=== PATIENT | female | born 1980 | race Two or more races ===

== ENCOUNTER 2020-09-11 17:58 | Emergency (ER) | payer OTHER ==
[~2020-09-11] VITALS: Ht 172.7 cm; Wt 108.9 kg
[2020-09-11] MEDS ORDERED: ACETAMINOPHEN 325 MG TAB PO ONE (20:30)
[2020-09-11 21:22] LABS: Urine Bacteria FEW /hpf (None Seen); Urine Blood 3+ /uL (Negative); Urine WBC 10 /hpf (0 - 5)
[2020-09-11 21:46] LABS: Alcohol, Urine < 3.0 mg/dL (0-10); Barbiturate Scree,Urine NEGATIVE (NEGATIVE); Benzodiazephine Screen, Urine NEGATIVE (NEGATIVE); Cannabinoid Screen, Urine NEGATIVE (NEGATIVE); Cocaine Screen, Urine NEGATIVE (NEGATIVE); Opiate Scree,Urine NEGATIVE (NEGATIVE); Phencyclidine Screen, Urine NEGATIVE (NEGATIVE)
[2020-09-11 22:16] LABS: Amphetamine Screen, Urine NEGATIVE (NEGATIVE)
[2020-09-11 23:08] LABS: Basophils # (auto) 0 10 ^3/uL (0-0.2); Eosinophils # (auto) 0 10 ^3/uL (0-0.8); Hemoglobin 11.4 g/dL (12.2-16.2); Monocytes # (auto) 0.3 10 ^3/uL (0-1.3); Red Cell Distribution Width 14.8 % (11.8-14.3); White Blood Cell 4.2 10^3/uL (4.4-10.8)
[2020-09-11 23:10] LABS: Basophils % (auto) 0.5 % (0.0-2.0); Lymphocytes # (auto) 0.9 10 ^3/uL (0.4-5.4); Lymphocytes % (auto) 21.9 % (10.0-50.0); Mean Corpuscular Hgb Conc. 33.4 g/dL (32.0-36.0); Mean Corpuscular Volume 74.9 fL (80.0-100.0); Monocytes % (auto) 6.5 % (0.0-12.0); Neutrophils % (auto) 71.1 % (37.0-80.0); Nucleated Red Blood Cells % 0.1 %; Platelet Count (auto) 76 10^3/uL (140-450); Red Blood Cells 4.55 10^6/uL (4.0-5.20)
[2020-09-11 23:31] LABS: BUN/Creatinine Ratio 7.5; Calcium 9.1 mg/dL (8.5-10.1); Potassium 3.3 mmol/L (3.5-5.1)
[2020-09-11 23:33] LABS: Bilirubin, Total 0.5 mg/dL (0.2-1.0)
[2020-09-12] MEDS ORDERED: POTASSIUM CHL 20 Meq TABLET PO ONE (00:45)
[2020-09-12] MEDS ORDERED: SODIUM CHLORIDE 0.9% 1,000 ML IV ONE (00:45)
[2020-09-12] MEDS: ACETAMINOPHEN 325 MG TAB PO ONE ×2 (01:58→02:13)
[2020-09-12 02:50] VITALS: BP 105/68
== END 2020-09-12 03:00 | disposition home or self-care (01) ==
LOC: ER 18:03
DX: N39.0 Urinary tract infection, site not specified (principal); K52.9 Noninfective gastroenteritis and colitis, unspecified; E86.0 Dehydration; R79.89 Other specified abnormal findings of blood chemistry; Z20.828 Contact with and (suspected) exposure to other viral communicable diseases
CPT/HCPCS: 36415; 71045; 74176; 80053; 80307; 81001; 82150; 83690; 85025; 87426; 99285; C9803; J7030; U0003

== ENCOUNTER 2021-07-15 20:54 | Emergency (ER) | payer OTHER ==
[~2021-07-15] VITALS: Ht 172.7 cm; Wt 106.6 kg
[2021-07-15 21:39] LABS: Urine Bacteria NONE SEEN /hpf (None Seen); Urine Blood 3+ /uL (Negative); Urine WBC 175 /hpf (0 - 5)
[2021-07-15 22:39] LABS: Basophils # (auto) 0 10 ^3/uL (0-0.2); Eosinophils # (auto) 0.1 10 ^3/uL (0-0.8); Hemoglobin 10.7 g/dL (12.2-16.2); Mean Corpuscular Hemoglobin 24.7 pg (28.0-32.0); Neutrophils # (auto) 4.8 10 ^3/uL (1.6-8.6); Nucleated Red Blood Cells % 0.1 %
[2021-07-15 22:40] LABS: Basophils % (auto) 0.3 % (0.0-2.0); Eosinophils % (auto) 0.9 % (0.0-7.0); Hematocrit 33.2 % (36.0-46.0); Lymphocytes # (auto) 2.2 10 ^3/uL (0.4-5.4); Lymphocytes % (auto) 29.3 % (10.0-50.0); Mean Corpuscular Hgb Conc. 32.3 g/dL (32.0-36.0); Mean Corpuscular Volume 76.4 fL (80.0-100.0); Monocytes # (auto) 0.3 10 ^3/uL (0-1.3); Monocytes % (auto) 4.6 % (0.0-12.0); Neutrophils % (auto) 64.9 % (37.0-80.0); Red Blood Cells 4.34 10^6/uL (4.0-5.20); Red Cell Distribution Width 15.1 % (11.8-14.3); White Blood Cell 7.5 10^3/uL (4.4-10.8)
[2021-07-15 22:50] LABS: Albumin 3.4 g/dL (3.4-5.0); Calcium 8.8 mg/dL (8.5-10.1); Potassium 3.9 mmol/L (3.5-5.1)
[2021-07-15 22:54] LABS: BUN/Creatinine Ratio 11.4; Bilirubin, Total 0.2 mg/dL (0.2-1.0); Total Protein 7.2 g/dL (6.4-8.2)
[2021-07-16] MEDS ORDERED: PANTOPRAZOLE 40 MG/10 ML VIAL INJ IV ONE (00:52)
[2021-07-16 01:06] VITALS: BP 117/65
== END 2021-07-16 01:09 | disposition home or self-care (01) ==
LOC: ER 20:54
DX: N93.9 Abnormal uterine and vaginal bleeding, unspecified (principal); N39.0 Urinary tract infection, site not specified; Z90.89 Acquired absence of other organs; Z98.890 Other specified postprocedural states
CPT/HCPCS: 36415; 76830; 76856; 80053; 81001; 84702; 85025; 99284; C9113

== ENCOUNTER → 2021-10-06 | Outpatient (CLI) | payer OTHER | END | disposition home or self-care (01) | LOC: LAB 14:37 | PROVIDERS: ATTEND Obstetrics & Gynecology | DX: N93.9 Abnormal uterine and vaginal bleeding, unspecified (principal) ==

== ENCOUNTER 2022-04-03 13:02 | Emergency (ER) | payer OTHER ==
[~2022-04-03] VITALS: Ht 172.7 cm; Wt 109.8 kg
[2022-04-03 14:42] LABS: Eosinophils # (auto) 0.1 10 ^3/uL (0-0.8); Mean Corpuscular Hemoglobin 22.6 pg (28.0-32.0); Monocytes # (auto) 0.3 10 ^3/uL (0-1.3)
[2022-04-03 14:43] LABS: Basophils # (auto) 0 10 ^3/uL (0-0.2); Basophils % (auto) 0.8 % (0.0-2.0); Eosinophils % (auto) 1.1 % (0.0-7.0); Hematocrit 33.9 % (36.0-46.0); Hemoglobin 10.7 g/dL (12.2-16.2); Lymphocytes # (auto) 1.4 10 ^3/uL (0.4-5.4); Lymphocytes % (auto) 26.4 % (10.0-50.0); Mean Corpuscular Hgb Conc. 31.6 g/dL (32.0-36.0); Mean Corpuscular Volume 71.4 fL (80.0-100.0); Monocytes % (auto) 5.2 % (0.0-12.0); Neutrophils # (auto) 3.6 10 ^3/uL (1.6-8.6); Neutrophils % (auto) 66.5 % (37.0-80.0); Nucleated Red Blood Cells % 0.1 %; Red Blood Cells 4.75 10^6/uL (4.0-5.20); Red Cell Distribution Width 17.2 % (11.8-14.3); White Blood Cell 5.4 10^3/uL (4.4-10.8)
[2022-04-03 14:58] LABS: Albumin 3.5 g/dL (3.4-5.0); Amylase 42 U/L (25-115); Calcium 9.1 mg/dL (8.5-10.1); Lipase 111 U/L (73-393); Potassium 3.9 mmol/L (3.5-5.1)
[2022-04-03 15:02] LABS: BUN/Creatinine Ratio 11.8; Bilirubin, Total 0.3 mg/dL (0.2-1.0); Total Protein 7.6 g/dL (6.4-8.2)
[2022-04-03 17:22] LABS: Urine Bacteria FEW /hpf (None Seen); Urine Mucus FEW (None Seen)
[2022-04-03] MEDS ORDERED: NITR-87 PO ×2 (18:07→20:05)
[2022-04-03 19:59] VITALS: BP 129/74
== END 2022-04-03 20:02 | disposition home or self-care (01) ==
LOC: ER 13:02
DX: N39.0 Urinary tract infection, site not specified (principal); Z90.89 Acquired absence of other organs
CPT/HCPCS: 36415; 74176; 80053; 81001; 82150; 83690; 85025

== ENCOUNTER 2025-07-03 21:35 | Emergency (ER) | payer MEDICAID ==
[~2025-07-03] VITALS: Ht 172.7 cm; Wt 101.7 kg
[~2025-07-03 21:35] MED LIST: NITR-87 PO
--- NOTE | 2025-07-03 23:28 | DVH ---
INDICATION: vag bleed TECHNIQUE: Multiple real-time grayscale transabdominal sonographic images along with color and duplex Doppler of the uterus and ovaries were obtained. COMPARISON: CT ABD PELVIS WO CONTRAST on DOS: 04/03/22, TRANSVAGINAL US NON OB on DOS: 07/15/21, CT ABD PELVIS WO CONTRAST on DOS: 09/11/20 FINDINGS: The uterus measures 10.6 x 6.7 x 6.5 cm. The endometrial stripe measures 1.6 cm. 2.1 x 1.8 x 1.4 cm isoechoic structure within the myometrium, possibly representing a fibroid. 2.1 x 1.9 x 1.5 cm focus within the lower uterine segment /cervix with internal debris. No evidence of pelvic cul-de-sac free fluid. Right ovary measures 4.5 x 3.6 x 3.0 cm with normal Doppler color flow. 4.0 x 2.9 x 2.4 cm cyst. Left ovary not visualized. IMPRESSION: 1. Limited study secondary to patient body habitus. 2. Ill-defined isoechoic structure within the uterine myometrium possibly representing a uterine fibr oid. 3. Cystic structure within the lower uterine segment /cervix with internal debris. 4. Right ovarian cyst. 5. Left ovary not visualized.
[2025-07-03 23:32] LABS: Chloride 104 mmol/L (98-107); Potassium 4.1 mmol/L (3.5-5.1); Sodium 139 mmol/L (136-145)
[2025-07-03 23:33] LABS: Anion Gap 8 (5-15); Calcium 9.2 mg/dL (8.7-10.4); Carbon Dioxide 27 mmol/L (20-31); Hematocrit 29.4 % (36.0-46.0); Hemoglobin 9.4 g/dL (12.2-16.2); Mean Corpuscular Hemoglobin 23.3 pg (28.0-32.0); Mean Corpuscular Volume 72.7 fL (80.0-100.0); Nucleated Red Blood Cells % 0.1 %
[2025-07-03 23:38] LABS: BUN/Creatinine Ratio 9.7 (10.0-20.0); Blood Urea Nitrogen 9 mg/dL (9-23); Glucose 94 mg/dL (74-106)
[2025-07-03 23:50] LABS: INR 0.99 (0.9-1.15); Partial Thromboplastin Time 25.9 SEC (24.5-34.5); Prothrombin Time 10.5 sec (9.3-11.8)
[2025-07-04 03:39] LABS: Urine Protein, UAD 1+ (Negative)
[2025-07-04] MEDS ORDERED: CEPH500C PO (04:05)
[2025-07-04] MEDS ORDERED: MEDR5TAB28 PO (04:05)
--- NOTE | 2025-07-04 04:05 | ED.PDOC ---
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 She denies any fever, nausea, vomiting, diarrhea or urinary symptoms. She denies any syncope, shortness of breath or chest pain. Chief Complaint: Vaginal Bleed Time Seen by MD: 22:21 Reviewed Notes: Nurses Notes Allergies: Coded Allergies: NO KNOWN ALLERGIES (Unverified , 09/11/20) Home Meds Active Scripts Cephalexin Monohydrate (Cephalexin) 500 Mg Cap, 1 CAP PO QID for 10 Days, #40 CAP Prov:LIBIA SADLER MD 07/04/25 Medroxyprogesterone Acetate (PROVERA) 5 Mg Tab, 1 TAB PO DAILY for 10 Days, #10 TAB 11 Refills Prov:LIBIA SADLER MD 07/04/25 Nitrofurantoin Monohydrate Mac (Macrobid) 100 Mg Cap, 100 MG PO BID for 5 Days, #10 CAP Prov:MAY BARRAZA MD 04/03/22 Information Source: Patient Mode of Arrival: Ambulatory Past Medical History PAST MEDICAL HISTORY: Denies 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, [employer] History: Other (Irregular menses) Family History Family History: Reviewed,noncontributory to illness Social History Smoker: Non-Smoker Alcohol: Denies ETOH Use Drugs: Denies Drug Use Lives In: Home Constitutional: denies: chills, diaphoresis, fatigue, fever, malaise, sweats, weakness, others EENTM: denies: blurred vision, double vision, ear bleeding, ear discharge, ear drainage, ear pain, ear ringing, eye pain, eye redness, hearing loss, mouth pain, mouth swelling, nasal discharge, nose bleeding, nose congestion, nose pain, photophobia, tearing, throat pain, throat swelling, voice changes, others Respiratory: denies: cough, hemoptysis, orthopnea, SOB at rest, shortness of breath, SOB with excertion, stridor, wheezing, others Cardiovascular: denies: chest pain, dizzy spells, diaphoresis, Dyspnea on exertion, edema, irregular heart beat, left arm pain, lightheadedness, palpitations, PND, syncope, others Gastrointestinal: denies: abdomen distended, abdominal pain, blood streaked bowels, constipated, diarrhea, dysphagia, difficulty swallowing, hematemesis, melena, nausea, poor appetite, poor fluid intake, rectal bleeding, rectal pain, vomiting, others Genitourinary: reports: abnormal vagina bleeding; denies: burning, dyspareunia, dysuria, flank pain, frequency, hematuria, incontinence, pain, , vagina discharge, urgency, others Neurological: denies: dizziness, fainting, headache, left sided numbness, left sided weakness, numbness, paresthesia, pre-existing deficit, right sided numbness, right sided weakness, seizure, speech problems, tingling, tremors, weakness, others Musculoskeletal: denies: back pain, gout, joint pain, joint swelling, muscle pain, muscle stiffness, neck pain, others Integumetry: denies: bruises, change in color, change in hair/nails, dryness, laceration, lesions, lumps, rash, wounds, others Allergic/Immunocompromised: denies: Difficulty Healing, Frequent Infections, Hives, Itching, others Hematologic/Lymphatic: denies: anemia, blood clots, easy bleeding, easy bruising, swollen glands, others Endocrine: denies: excessive hunger, excessive sweating, excessive thirst, excessive urination, flushing, intolerance to cold, intolerance to heat, unexplained weight gain, unexplained weight loss, others Psychiatric: denies: anxiety, bipolar disorder, depression, hopeless, panic disorder, schizophrenia, sleepless, suicidal, others All Other Systems: Reviewed and Negative (Comprehensive systems review obtained and negative except for what is stated in the HPI.) Physical Exam General Appearance: No Apparent Distress, Obese HEENT: Other (Pupils and face symmetric. Moist mucous membranes.) Neck: Full Range of Motion, Normal Inspection Respiratory: Lungs Clear, No Accessory Muscle Use, No Respiratory Distress, Normal Breath Sounds Cardiovascular: No Edema, No JVD, Regular Rate/Rhythm Breast Exam: Deferred Gastrointestinal: Non Tender, Soft Genitalia: Deferred Pelvic: Deferred Rectal: Deferred Extremities: Normal inspection, Normal range of motion, Non-tender, No pedal edema Neurologic: Alert (Oriented x4), Normal Affect, Normal Mood, Other (Ambulatory) Cerebellar Function: NOT DONE Reflexes: NOT DONE Skin: Dry, Pallor, Warm Lymphatic: NOT DONE Was a procedure done? Was a procedure done?: No Differential Diagnosis ([employer]) Vaginal Bleeding: Blood Loss Anemia, Menorrhagia, Menstrual Bleeding, Myomatous Uterus, UTI, Other (Coagulopathy) X-Ray, Labs, Meds, VS Vital Signs Date Time Temp Pulse Resp B/P (MAP) Pulse Ox O2 Delivery O2 Flow Rate FiO2 07/04/25 04:20 61 19 98 Room Air 07/04/25 04:20 97.6 61 19 147/66 (93) 98 97.6 07/04/25 01:30 97.4 70 18 127/55 (79) 98 97.4 07/03/25 21:38 98.0 80 16 110/80 97 98.0 Lab Test 07/04/25 03:17 07/03/25 23:06 Range/Units Urine Color Light-red Yellow Urine Clarity Ex.turbid Clear Urine pH 5.5 5.0-9.0 Urine Specific [place] 1.010 1.001-1.035 Urine Protein 1+ H Negative Urine Ketones Negative Negative Urine Blood 3+ H Negative /uL Urine Nitrite Negative Negative Urine Bilirubin Negative Negative Urine Urobilinogen Normal Negative mg/dL Urine Leukocyte Esterase 2+ Negative /uL Urine Glucose Normal Normal mg/dL Urine Test Negative Negative White Blood Count 5.6 4.4-10.8 10^3/uL Red Blood Count 4.04 4.0-5.20 10^6/uL Hemoglobin 9.4 L 12.2-16.2 g/dL Hematocrit 29.4 L 36.0-46.0 % Mean Corpuscular Volume 72.7 L 80.0-100.0 fL Mean Corpuscular Hemoglobin 23.3 L 28.0-32.0 pg Mean Corpuscular Hemoglobin Concent 32.0 32.0-36.0 g/dL Red Cell Distribution Width 18.0 H 11.8-14.3 % Platelet Count 199 140-450 10^3/uL Mean Platelet Volume 9.0 6.9-10.8 fL Neutrophils (%) (Auto) 52.8 37.0-80.0 % Lymphocytes (%) (Auto) 38.7 10.0-50.0 % Monocytes (%) (Auto) 6.8 0.0-12.0 % Eosinophils (%) (Auto) 1.2 0.0-7.0 % Basophils (%) (Auto) 0.5 0.0-2.0 % Neutrophils # (Auto) 3.0 1.6-8.6 10 ^3/uL Lymphocytes # (Auto) 2.2 0.4-5.4 10 ^3/uL Monocytes # (Auto) 0.4 0-1.3 10 ^3/uL Eosinophils # (Auto) 0.1 0-0.8 10 ^3/uL Basophils # (Auto) 0 0-0.2 10 ^3/uL Nucleated Red Blood Cells 0.1 % Prothrombin Time 10.5 9.3-11.8 sec Prothrombin Time INR 0.99 0.9-1.15 Activated Partial Thromboplast Time 25.9 24.5-34.5 SEC Sodium Level 139 136-145 mmol/L Potassium Level 4.1 3.5-5.1 mmol/L Chloride Level 104 98-107 mmol/L Carbon Dioxide Level 27 20-31 mmol/L Anion Gap 8 5-15 Blood Urea Nitrogen 9 9-23 mg/dL Creatinine 0.93 0.550-1.02 mg/dL Glomerular Filtration Rate Calc 77 >90 mL/min BUN/Creatinine Ratio 9.7 L 10.0-20.0 Serum Glucose 94 74-106 mg/dL Calcium Level 9.2 8.7-10.4 mg/dL [place] [id number] Ph: [phone] DIAGNOSTIC IMAGING Diagnostic Imaging Report : [id number] Signed PATIENT: LION GRIFFINACCT: [id number] UNIT: [id number] : 1980 LOC: ER ROOM / BED: / AGE / SEX: 45 / F ADM STATUS: REG ER SERVICE 0000 ORDERING PHYSICIAN: LIBIA SADLER MD PROCEDURE(s): PELUS - PELVIC REASON: vag bleed ORDER NUMBER(s): [id number], ACCESSION NUMBER(s): [id number] INDICATION: vag bleed TECHNIQUE: Multiple real-time grayscale transabdominal sonographic images along with color and duplex Doppler of the uterus and ovaries were obtained. COMPARISON: CT ABD PELVIS WO CONTRAST on DOS: 04/03/22, TRANSVAGINAL US NON OB on DOS: 07/15/21, CT ABD PELVIS WO CONTRAST on DOS: 09/11/20 FINDINGS: The uterus measures 10.6 x 6.7 x 6.5 cm. The endometrial stripe measures 1.6 cm. 2.1 x 1.8 x 1.4 cm isoechoic structure within the myometrium, possibly representing a fibroid. 2.1 x 1.9 x 1.5 cm focus within the lower uterine segment /cervix with internal debris. No evidence of pelvic cul-de-sac free fluid. Right ovary measures 4.5 x 3.6 x 3.0 cm with normal Doppler color flow. 4.0 x 2.9 x 2.4 cm cyst. Left ovary not visualized. IMPRESSION: 1. Limited study secondary to patient body habitus. 2. Ill-defined isoechoic structure within the uterine myometrium possibly representing a uterine fibroid. 3. Cystic structure within the lower uterine segment /cervix with internal debris. 4. Right ovarian cyst. 5. Left ovary not visualized. X-Ray, Labs, Meds, VS Comment 45-year-old female with a history of irregular menses complaining of heavy vaginal bleeding with clots Vitals unremarkable Exam remarkable for mild pallor Rhythm strip independently interpreted by me: Sinus rhythm, rate 80, no ectopy. Pelvic ultrasound IMPRESSION: 1. Limited study secondary to patient body habitus. 2. Ill-defined isoechoic structure within the uterine myometrium possibly representing a uterine fibroid. 3. Cystic structure within the lower uterine segment /cervix with internal debri s. 4. Right ovarian cyst. 5. Left ovary not visualized. CBC remarkable for hemoglobin 9.4, hematocrit 29.4, basic metabolic panel, coagulation panel and urine test unremarkable. UA abnormal indicating possible UTI. No acute treatment indicated in ED On re-evaluation, exam is unchanged. Vitals were stable. Patient appears stable for discharge with close outpatient follow-up with OBGYN. She will be referred to Dr. Baca. Stephie Sheikh Time of 1ST Reevaluation: 04:00 Reevaluation 1ST: Unchanged Patient Education/Counseling: Diagnosis, Treatment, Need For Follow Up Family Education/Counseling: No Family Present Departure 1 Departure Time of Disposition: 04:00 Impression: Primary Impression: Vaginal bleeding Additional Impressions: Uterine fibroid UTI (urinary tract infection) Disposition: 01 HOME / SELF CARE / HOMELESS Condition: Stable Referrals: JOE BACA DO Additional Instructions: Your blood tests were unremarkable. Your urine test showed you have a bladder infection. Your ultrasound showed you may have a uterine fibroid and an ovarian cyst. I have enclosed a report below. I have prescribed antibiotics for your UTI and medication to help slow or stop the vaginal bleeding. Follow-up with Dr. Baca and in 1-2 days for further evaluation of your bleeding. [place] [address] Ph: [phone] DIAGNOSTIC IMAGING Diagnostic Imaging Report : [id number] Signed PATIENT: LION GRIFFIN ACCT: [id number] UNIT: [id number] : 1980 LOC: ER ROOM / BED: / AGE / SEX: 45 / F ADM STATUS: REG ER SERVICE 0000 ORDERING PHYSICIAN: LIBIA SADLER MD PROCEDURE(s): PELUS - PELVIC REASON: vag bleed ORDER NUMBER(s): [id number], ACCESSION NUMBER(s): [id number] INDICATION: vag bleed TECHNIQUE: Multiple real-time grayscale transabdominal sonographic images along with color and duplex Doppler of the uterus and ovaries were obtained. COMPARISON: CT ABD PELVIS WO CONTRAST on DOS: 04/03/22, TRANSVAGINAL US NON OB on DOS: 07/15/21, CT ABD PELVIS WO CONTRAST on DOS: 09/11/20 FINDINGS: The uterus measures 10.6 x 6.7 x 6.5 cm. The endometrial stripe measures 1.6 cm. 2.1 x 1.8 x 1.4 cm isoechoic structure within the myometrium, possibly representing a fibroid. 2.1 x 1.9 x 1.5 cm focus within the lower uterine segment /cervix with internal debris. No evidence of pelvic cul-de-sac free fluid. Right ovary measures 4.5 x 3.6 x 3.0 cm with normal Doppler color flow. 4.0 x 2.9 x 2.4 cm cyst. Left ovary not visualized. IMPRESSION: 1. Limited study secondary to patient body habitus. 2. Ill-defined isoechoic structure within the uterine myometrium possibly representing a uterine fibroid. 3. Cystic structure within the lower uterine segment /cervix with internal debris. 4. Right ovarian cyst. 5. Left ovary not visualized. e-Prescriptions Cephalexin Monohydrate (Cephalexin) 500 Mg Cap 1 CAP PO QID for 10 Days, #40 CAP Prov: LIBIA SADLER MD 07/04/25 Medroxyprogesterone Acetate (PROVERA) 5 Mg Tab 1 TAB PO DAILY for 10 Days, #10 TAB 11 Refills Prov: LIBIA SADLER MD 07/04/25 Discharged With: Relative Comments Off work x2 days Critical Care Note Critical Care Time?: No Stability Stability form required: No Heart Score Heart Score: Heart Score Response (Comments) Value History N/A 0 EKG N/A 0 Age N/A 0 Risk Factors N/A 0 Troponin N/A 0 Total 0 I personally scribed for LIBIA SADLER MD ([email or web address]) on 07/04/25 at 04:08. Electronically submitted by Clive Garcia ([facility]). LIBIA SADLER MD Jul 04, 2025 04:05
[2025-07-04 04:20] VITALS: BP 147/66; PULSE 61; RESP 19; TEMP 97.6; O2SAT 98
== END 2025-07-04 04:20 | disposition home or self-care (01) ==
LOC: ER 21:35
DX: D25.9 Leiomyoma of uterus, unspecified (principal); N93.9 Abnormal uterine and vaginal bleeding, unspecified; N39.0 Urinary tract infection, site not specified; Z90.49 Acquired absence of other specified parts of digestive tract
CPT/HCPCS: 36415; 76830; 76856; 80048; 81003; 81025; 82947; 85025; 85610; 85730

== ENCOUNTER 2025-08-01 07:50 | Inpatient (IN) | payer MEDICAID ==
[2025-08-01] VITALS (11 sets, daily range): BP systolic 118–141; BP diastolic 70–98; PULSE 69–99; RESP 16–18; TEMP 97.4–101.9; O2SAT 95–100
[~2025-08-01] VITALS: Ht 172.7 cm; Wt 101.9 kg
[~2025-08-01 07:50] MED LIST changes: +CEPH500C PO; +MEDR5TAB28 PO
--- NOTE | 2025-08-01 08:41 | ED.PDOC ---
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 Patient reports on being in the ER one month ago for similar symptoms and was diagnosed with uterine fibroids, UTI, cyst on left ovary and we will was referred to Dr. Garnder who is the OBGYN. Patient states on having heavy vaginal bleeding with large clots since 07/21/2025 and has been worsening during the last three days, associating with the fatigue, pelvic cramping, pale skin and weakness. Patient notes the she was given medications from her cardiologist and has currently ran out. Patient does have an appointment with cardiologist later this month. Denies chills, fever, N/V/D, SOB, CP. No other associated symptoms, modifiers, recent injuries or sick contacts present at this time. Chief Complaint: Vaginal Bleed Time Seen by MD: 08:30 Primary Care Provider: MERCADO Reviewed Notes: Nurses Notes, Medications, Allergies Allergies: Coded Allergies: NO KNOWN ALLERGIES (Unverified , 09/11/20) Home Meds Active Scripts Cephalexin Monohydrate (Cephalexin) 500 Mg Cap, 1 CAP PO QID for 10 Days, #40 CAP Prov:LIBIA SADLER MD 07/04/25 Medroxyprogesterone Acetate (PROVERA) 5 Mg Tab, 1 TAB PO DAILY for 10 Days, #10 TAB 11 Refills Prov:LIBIA SADLER MD 07/04/25 Nitrofurantoin Monohydrate Mac (Macrobid) 100 Mg Cap, 100 MG PO BID for 5 Days, #10 CAP Prov:MAY BARRAZA MD 04/03/22 Information Source: Patient Mode of Arrival: Ambulatory Severity: Moderate Timing: Months Duration: Since onset Prehospital treatment: None Past Medical History PAST MEDICAL HISTORY: Denies 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, 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: Ovarian Cysts (Left ovary), Uterine Fibroids, Other (Irregular menses) Family History Family History: Reviewed,noncontributory to illness, Unknown Social History Smoker: Non-Smoker Alcohol: Denies ETOH Use Drugs: Denies Drug Use Lives In: Home Constitutional: denies: chills, diaphoresis, fatigue, fever, malaise, sweats, weakness, others EENTM: denies: blurred vision, double vision, ear bleeding, ear discharge, ear drainage, ear pain, ear ringing, eye pain, eye redness, hearing loss, mouth pain, mouth swelling, nasal discharge, nose bleeding, nose congestion, nose pain, photophobia, tearing, throat pain, throat swelling, voice changes, others Respiratory: denies: cough, hemoptysis, orthopnea, SOB at rest, shortness of breath, SOB with excertion, stridor, wheezing, others Cardiovascular: denies: chest pain, dizzy spells, diaphoresis, Dyspnea on exertion, edema, irregular heart beat, left arm pain, lightheadedness, palpitations, PND, syncope, others Gastrointestinal: denies: abdomen distended, abdominal pain, blood streaked bowels, constipated, diarrhea, dysphagia, difficulty swallowing, hematemesis, melena, nausea, poor appetite, poor fluid intake, rectal bleeding, rectal pain, vomiting, others Genitourinary: reports: abnormal vagina bleeding; denies: burning, dyspareunia, dysuria, flank pain, frequency, hematuria, incontinence, pain, , vagina discharge, urgency, others Neurological: denies: dizziness, fainting, headache, left sided numbness, left sided weakness, numbness, paresthesia, pre-existing deficit, right sided numbness, right sided weakness, seizure, speech problems, tingling, tremors, weakness, others Musculoskeletal: denies: back pain, gout, joint pain, joint swelling, muscle pain, muscle stiffness, neck pain, others Integumetry: denies: bruises, change in color, change in hair/nails, dryness, laceration, lesions, lumps, rash, wounds, others Allergic/Immunocompromised: denies: Difficulty Healing, Frequent Infections, Hives, Itching, others Hematologic/Lymphatic: denies: anemia, blood clots, easy bleeding, easy bruising, swollen glands, others Endocrine: denies: excessive hunger, excessive sweating, excessive thirst, excessive urination, flushing, intolerance to cold, intolerance to heat, unexplained weight gain, unexplained weight loss, others Psychiatric: denies: anxiety, bipolar disorder, depression, hopeless, panic disorder, schizophrenia, sleepless, suicidal, others All Other Systems: Reviewed and Negative Physical Exam General Appearance: Moderate Distress, Normal HEENT: Normal ENT Inspection, Pharynx Normal, TMs Normal Neck: Full Range of Motion, Non-Tender, Normal, Normal Inspection Respiratory: Chest Non-Tender, Lungs Clear, No Accessory Muscle Use, No Respiratory Distress, Normal Breath Sounds Cardiovascular: No Edema, No JVD, No Murmur, No Gallop, Normal Peripheral Pulses, Regular Rate/Rhythm Breast Exam: Deferred Gastrointestinal: No Organomegaly, Non Tender, No Pulsatile Mass, Normal Bowel Sounds, Soft Genitalia: Deferred Pelvic: Deferred Rectal: Deferred Extremities: No calf tenderness, Normal capillary refill, Normal inspection, Normal range of motion, Non-tender, No pedal edema Musculoskeletal : Apperance: Normal Neurologic: Alert, 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 Was a procedure done?: No Differential Dx Considerations may include: Anemia Electrolyte imbalance X-Ray, Labs, Meds, VS Vital Signs Date Time Temp Pulse Resp B/P (MAP) Pulse Ox O2 Delivery O2 Flow Rate FiO2 08/01/25 11:57 98.3 80 18 136/63 (87) 97 98.3 08/01/25 11:51 97 Room Air* 0 21 08/01/25 11:38 80 17 97 Room Air* 0 21 08/01/25 10:33 98.1 90 18 129/65 (86) 97 98.1 08/01/25 07:54 98.2 73 16 143/68 99 98.2 Lab Test 08/01/25 10:17 08/01/25 09:25 Range/Units Urine Color Red H Yellow Urine Clarity Cloudy H Clear Urine pH 6.0 5.0-9.0 Urine Specific [place] 1.008 1.001-1.035 Urine Protein 2+ H Negative Urine Ketones Negative Negative Urine Blood 3+ H Negative /uL Urine Nitrite Negative Negative Urine Bilirubin Negative Negative Urine Urobilinogen Normal Negative mg/dL Urine Leukocyte Esterase 1+ Negative /uL Urine RBC 5981 0 - 4 /hpf Urine Microscopic WBC 5 0-5 /HPF Urine Squamous Epithelial Cells None seen <5 /hpf Urine Bacteria None seen None Seen /hpf Urine Glucose Normal Normal mg/dL White Blood Count 3.5 L 4.4-10.8 10^3/uL Red Blood Count 2.97 L 4.0-5.20 10^6/uL Hemoglobin 6.8 *L 12.2-16.2 g/dL Hematocrit 21.8 L 36.0-46.0 % Mean Corpuscular Volume 73.5 L 80.0-100.0 fL Mean Corpuscular Hemoglobin 22.7 L 28.0-32.0 pg Mean Corpuscular Hemoglobin Concent 30.9 L 32.0-36.0 g/dL Red Cell Distribution Width 17.2 H 11.8-14.3 % Platelet Count 170 140-450 10^3/uL Mean Platelet Volume 8.5 6.9-10.8 fL Neutrophils (%) (Auto) 55.2 37.0-80.0 % Lymphocytes (%) (Auto) 36.3 10.0-50.0 % Monocytes (%) (Auto) 5.9 0.0-12.0 % Eosinophils (%) (Auto) 1.8 0.0-7.0 % Basophils (%) (Auto) 0.8 0.0-2.0 % Neutrophils # (Auto) 1.9 1.6-8.6 10 ^3/uL Lymphocytes # (Auto) 1.3 0.4-5.4 10 ^3/uL Monocytes # (Auto) 0.2 0-1.3 10 ^3/uL Eosinophils # (Auto) 0.1 0-0.8 10 ^3/uL Basophils # (Auto) 0 0-0.2 10 ^3/uL Nucleated Red Blood Cells 0.1 % Platelet Estimate Adequate Hypochromasia (manual) Moderate Anisocytosis (manual) Slight Microcytosis Moderate Sodium Level Pending Potassium Level Pending Chloride Level Pending Carbon Dioxide Level Pending Anion Gap Pending Blood Urea Nitrogen Pending Creatinine Pending Glomerular Filtration Rate Calc Pending BUN/Creatinine Ratio Pending Serum Glucose Pending Calcium Level Pending Total Bilirubin Pending Aspartate Amino Transferase (AST) Pending Alanine Aminotransferase (ALT) Pending Alkaline Phosphatase Pending Total Protein Pending Albumin Pending [address] [address] Ph: [phone] DIAGNOSTIC IMAGING Diagnostic Imaging Report : [id number] Signed PATIENT: LION GRIFFIN ACCT: [id number] UNIT: [id number] : 1980 LOC: ER ROOM / BED: / AGE / SEX: 45 / F ADM STATUS: REG ER SERVICE 1120 ORDERING PHYSICIAN: MADISON APPLE MD PROCEDURE(s): PELTR - TRANSVAGINAL US NON OB REASON: FIBROID, OV CYST, R/O TORSION ORDER NUMBER(s): [id number], ACCESSION NUMBER(s): [id number] CLINICAL HISTORY: Fibroid, ovarian cyst. Rule out torsion. COMPARISON:US PELVIC on DOS: 07/03/25, CT ABD PELVIS WO CONTRAST on DOS: 04/03/22, TRANSVAGINAL US NON OB on DOS: 07/15/21 TECHNIQUE: Transvaginal and transabdominal grayscale sonographic imaging of the uterus and ovaries was performed, assisted by color Doppler technique. Duplex Doppler ultrasound of both ovaries was also performed. FINDINGS: The uterus measures 9.9 x 7.7 x 6.8 cm. There is heterogeneous echogenicity. Focal heterogeneous area in the uterine myometrium measuring up to 1.7 cm, possible fibroid, minimally changed compared to the prior exam, and poorly delineated from the adjacent myometrium. Endometrial thickness measures 1.5 cm, at the upper limits of normal for premenopausal. Nabothian cyst in the right side of the cervix. Right ovary measures 3.9 x 2.6 x 3.5 cm. Arterial and venous blood flow demonstrated. Mildly complex cyst in the right ovary measures up to 2.4 cm with septations visualized. Left ovary is not visualized. IMPRESSION: 1. Heterogeneous uterus with possible small fibroid, poorly delineated from the adjacent myometrium. Correlate with clinical findings. If clinically indicated, nonemergent MRI could be obtained to further characterize. 2. Mildly complex cyst in the right ovary. No sonographic evidence for right ovarian torsion. 3. Left ovary is not visualized. 4. Nabothian cyst in the cervix. ATED BY: RAJESH NEAL DO DICTATED DATE/TIME: 08/01/25 1224 SIGNED BY: RAJESH NEAL DO SIGNED DATE/TIME: 08/01/25 4014 CC: [address] [address] Ph: [phone] DIAGNOSTIC IMAGING Diagnostic Imaging Report : [id number] Signed PATIENT: LION GRIFFIN ACCT: [id number] UNIT: [id number] : 1980 LOC: ER ROOM / BED: / AGE / SEX: 45 / F ADM STATUS: REG ER SERVICE 1034 ORDERING PHYSICIAN: MADISON APPLE MD PROCEDURE(s): PELUS - PELVIC REASON: Fibroid ovarian cyst rule out torsion ORDER NUMBER(s): [id number], ACCESSION NUMBER(s): [id number] CLINICAL HISTORY: Fibroid, ovarian cyst. Rule out torsion. COMPARISON:US PELVIC on DOS: 07/03/25, CT ABD PELVIS WO CONTRAST on DOS: 04/03/22, TRANSVAGINAL US NON OB on DOS: 07/15/21 TECHNIQUE: Transvaginal and transabdominal grayscale sonographic imaging of the uterus and ovaries was performed, assisted by color Doppler technique. Duplex Doppler ultrasound of both ovaries was also performed. FINDINGS: The uterus measures 9.9 x 7.7 x 6.8 cm. There is heterogeneous echogenicity. Focal heterogeneous area in the uterine myometrium measuring up to 1.7 cm, possible fibroid, minimally changed compared to the prior exam, and poorly delineated from the adjacent myometrium. Endometrial thickness measures 1.5 cm, at the upper limits of normal for premenopausal. Nabothian cyst in the right side of the cervix. Right ovary measures 3.9 x 2.6 x 3.5 cm. Arterial and venous blood flow demonstrated. Mildly complex cyst in the right ovary measures up to 2.4 cm with septations visualized. Left ovary is not visualized. IMPRESSION: 1. Heterogeneous uterus with possible small fibroid, poorly delineated from the adjacent myometrium. Correlate with clinical findings. If clinically indicated, nonemergent MRI could be obtained to further characterize. 2. Mildly complex cyst in the right ovary. No sonographic evidence for right ovarian torsion. 3. Left ovary is not visualized. 4. Nabothian cyst in the cervix. ATED BY: RAJESH NEAL DO DICTATED DATE/TIME: 08/01/25 1224 SIGNED BY: RAJESH NEAL DO SIGNED DATE/TIME: 08/01/25 1224 CC: Patient alert. Complaining of vaginal bleeding. Was seen here for the same condition few weeks ago. Vitals stable. No leg swelling. No shortness a breath. Seen by our OBGYN. She has a an appointment for the fibroid. No acute process. Abdomen is soft nontender. Reviewed her previous visit. She was told to continue taking her medication. Severe anemia. She will need blood transfusion. Possibly hysterectomy. OBGYN consultation. Time of 1ST Reevaluation: 09:00 Reevaluation 1ST: Improved Patient Education/Counseling: Diagnosis, Treatment, Prognosis Family Education/Counseling: No Family Present SEPSIS Sepsis Screen Date sepsis recognized/suspect: Aug 01, 2025 Time Sepsis recognized/suspect: 753 Recent Procedure: No On Antibiotic Therapy: No Respiratory Rate >20: No Heart Rate >90: No Temp<36 C (96.8 F) or >38.3 C: No SBP <90 or MAP <65 mmHG: No New Acute Mental Status Change: No Is the patient on CPAP, BIPAP,: No Physician Orders Pelvic (08/01/25 10:34) Type And Screen (08/01/25 10:34) Transvaginal Us Non Ob (08/01/25 11:20) Vital Signs Date Time Temp Pulse Resp B/P (MAP) Pulse Ox O2 Delivery O2 Flow Rate FiO2 08/01/25 11:57 98.3 80 18 136/63 (87) 97 98.3 08/01/25 11:51 97 Room Air* 0 21 08/01/25 11:38 80 17 97 Room Air* 0 21 08/01/25 10:33 98.1 90 18 129/65 (86) 97 98.1 08/01/25 07:54 98.2 73 16 143/68 99 98.2 Laboratory Tests Test 08/01/25 09:25 White Blood Count 3.5 10^3/uL (4.4-10.8) L Departure 1 Departure Time of Disposition: 09:13 Impression: Primary Impression: Abnormal uterine bleeding Additional Impressions: Uterine fibroid Qualified Codes: D25.9 - Leiomyoma of uterus, unspecified Severe anemia Disposition: ADMITTED INPATIENT Admit to: Med Surg Condition: Guarded Critical Care Note Critical Care Time?: No Stability Stability form required: No Heart Score Heart Score: Heart Score Response (Comments) Value History N/A 0 EKG N/A 0 Age N/A 0 Risk Factors N/A 0 Troponin N/A 0 Total 0 I personally scribed for MADISON APPLE MD ([email or web address]) on 08/01/25 at 08:41. Electronically submitted by Art Blum ([email or web address]). I personally scribed for MADISON APPLE MD ([email or web address]) on 08/01/25 at 14:11. Electronically submitted by Meek Broderick ([email or web address]). MDAISON APPLE MD Aug 01, 2025 08:41
[2025-08-01 10:00] LABS: Hematocrit 21.8 % (36.0-46.0); Mean Corpuscular Hemoglobin 22.7 pg (28.0-32.0); Mean Corpuscular Volume 73.5 fL (80.0-100.0); Nucleated Red Blood Cells % 0.1 %
[2025-08-01 10:05] LABS: Hemoglobin 6.8 g/dL (12.2-16.2)
[2025-08-01 10:24] LABS: Anisocytosis Slight
[2025-08-01 10:41] LABS: Urine Protein, UAD 2+ (Negative)
--- NOTE | 2025-08-01 12:26 | DVH ---
CLINICAL HISTORY: Fibroid, ovarian cyst. Rule out torsion. COMPARISON:US PELVIC on DOS: 07/03/25, CT ABD PELVIS WO CONTRAST on DOS: 04/03/22, TRANSVAGINAL US NON OB on DOS: 07/15/21 TECHNIQUE: Transvaginal and transabdominal grayscale sonographic imaging of the uterus and ovaries wa s performed, assisted by color Doppler technique. Duplex Doppler ultrasound of both ovaries was also performed. FINDINGS: The uterus measures 9.9 x 7.7 x 6.8 cm. There is heterogeneous echogenicity. Focal heteroge neous area in the uterine myometrium measuring up to 1.7 cm, possible fibroid, minimally changed comp ared to the prior exam, and poorly delineated from the adjacent myometrium. Endometrial thickness blayne sures 1.5 cm, at the upper limits of normal for premenopausal. Nabothian cyst in the right side of th e cervix. Right ovary measures 3.9 x 2.6 x 3.5 cm. Arterial and venous blood flow demonstrated. Mildly complex cyst in the right ovary measures up to 2.4 cm with septations visualized. Left ovary is not visualized. IMPRESSION: 1. Heterogeneous uterus with possible small fibroid, poorly delineated from the adjacent myometrium. Correlate with clinical findings. If clinically indicated, nonemergent MRI could be obtained to furt her characterize. 2. Mildly complex cyst in the right ovary. No sonographic evidence for right ovarian torsion. 3. Left ovary is not visualized. 4. Nabothian cyst in the cervix.
--- NOTE | 2025-08-01 13:33 | DVHHP2 ---
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 Patient reports on being in the ER one month ago for similar symptoms and was diagnosed with uterine fibroids, UTI, cyst on left ovary and we will was referred to OBGYN Dr. Baca. Patient states on having heavy vaginal bleeding with large clots since 07/21/2025 and has been worsening during the last three days, associating with the fatigue, pelvic cramping, pale skin and weakness. Upon evaluation, the patient appears pale and states increased weakness. She is informed of hemoglobin 6.8 and is agreeable with blood transfusion. The patient denies taking any anticoagulants. Patient notes the she was given medications from her medication technician and has currently ran out. Patient does have an appointment on August 14 with OBGYN which was the soonest they could see her. The patient denies chills, fever, N/V/D, SOB, CP, abdominal pain, diarrhea, constipation and other associated symptoms. The patient is concerned about her symptoms and would like to be further evaluated and treated. The patient will be admitted under hospitalist care to the medical-surgical unit. The plan has been discussed with the patient in which all questions concerns have been addressed. Past Surgical History: Family History: None Smoke: No ALCOHOL: none Drugs: None Lives: with Family Domestic Violence: Neg Review of Systems Constitutional: Yes: Malaise Other Vaginal bleeding heavily Allergies: Coded Allergies: NO KNOWN ALLERGIES (Unverified , 09/11/20) Exam Vital Signs Vital Signs Date Time Temp Pulse Resp B/P (MAP) Pulse Ox O2 Delivery O2 Flow Rate FiO2 08/01/25 11:57 98.3 80 18 136/63 (87) 97 98.3 08/01/25 11:51 Room Air* 0 21 General Appearance: Alert, Oriented X3, Cooperative, mild distress HEENT: Atraumatic, PERRLA, Mucous membr. moist/pink Respiratory: Clear to auscultation, Normal air movement Cardiovascular: Regular rate, Normal S1, Normal S2, No murmurs Abdominal: Normal bowel sounds, Soft, No tenderness, No hepatospenomegaly, No masses Extremities: No clubbing, No cyanosis, No edema, Normal pulses, No tenderness/swelling, Other (Pale lips) Skin: No rashes, No breakdown Neuro: Normal gait, Normal speech, Strength at 5/5 X4 ext, Normal tone, Sensation intact Psych/Mental Status: Mental status NL, Mood NL Labs/Xrays Labs Test 08/01/25 10:17 08/01/25 09:25 Range/Units Urine Color Red H Yellow Urine Clarity Cloudy H Clear Urine pH 6.0 5.0-9.0 Urine Specific [place] 1.008 1.001-1.035 Urine Protein 2+ H Negative Urine Ketones Negative Negative Urine Blood 3+ H Negative /uL Urine Nitrite Negative Negative Urine Bilirubin Negative Negative Urine Urobilinogen Normal Negative mg/dL Urine Leukocyte Esterase 1+ Negative /uL Urine RBC 5981 0 - 4 /hpf Urine Microscopic WBC 5 0-5 /HPF Urine Squamous Epithelial Cells None seen <5 /hpf Urine Bacteria None seen None Seen /hpf Urine Glucose Normal Normal mg/dL White Blood Count 3.5 L 4.4-10.8 10^3/uL Red Blood Count 2.97 L 4.0-5.20 10^6/uL Hemoglobin 6.8 *L 12.2-16.2 g/dL Hematocrit 21.8 L 36.0-46.0 % Mean Corpuscular Volume 73.5 L 80.0-100.0 fL Mean Corpuscular Hemoglobin 22.7 L 28.0-32.0 pg Mean Corpuscular Hemoglobin Concent 30.9 L 32.0-36.0 g/dL Red Cell Distribution Width 17.2 H 11.8-14.3 % Platelet Count 170 140-450 10^3/uL Mean Platelet Volume 8.5 6.9-10.8 fL Neutrophils (%) (Auto) 55.2 37.0-80.0 % Lymphocytes (%) (Auto) 36.3 10.0-50.0 % Monocytes (%) (Auto) 5.9 0.0-12.0 % Eosinophils (%) (Auto) 1.8 0.0-7.0 % Basophils (%) (Auto) 0.8 0.0-2.0 % Neutrophils # (Auto) 1.9 1.6-8.6 10 ^3/uL Lymphocytes # (Auto) 1.3 0.4-5.4 10 ^3/uL Monocytes # (Auto) 0.2 0-1.3 10 ^3/uL Eosinophils # (Auto) 0.1 0-0.8 10 ^3/uL Basophils # (Auto) 0 0-0.2 10 ^3/uL Nucleated Red Blood Cells 0.1 % Platelet Estimate Adequate Hypochromasia (manual) Moderate Anisocytosis (manual) Slight Microcytosis Moderate ORDERING PHYSICIAN: MADISON APPLE MD PROCEDURE(s): PELTR - TRANSVAGINAL US NON OB REASON: FIBROID, OV CYST, R/O TORSION ORDER NUMBER(s): [id number], ACCESSION NUMBER(s): [id number] CLINICAL HISTORY: Fibroid, ovarian cyst. Rule out torsion. COMPARISON:US PELVIC on DOS: 07/03/25, CT ABD PELVIS WO CONTRAST on DOS: 04/03/22, TRANSVAGINAL US NON OB on DOS: 07/15/21 TECHNIQUE: Transvaginal and transabdominal grayscale sonographic imaging of the uterus and ovaries was performed, assisted by color Doppler technique. Duplex Doppler ultrasound of both ovaries was also performed. FINDINGS: The uterus measures 9.9 x 7.7 x 6.8 cm. There is heterogeneous echogenicity. Focal heterogeneous area in the uterine myometrium measuring up to 1.7 cm, possible fibroid, minimally changed compared to the prior exam, and poorly delineated from the adjacent myometrium. Endometrial thickness measures 1.5 cm, at the upper limits of normal for premenopausal. Nabothian cyst in the right side of the cervix. Right ovary measures 3.9 x 2.6 x 3.5 cm. Arterial and venous blood flow demonstrated. Mildly complex cyst in the right ovary measures up to 2.4 cm with septations visualized. Left ovary is not visualized. IMPRESSION: 1. Heterogeneous uterus with possible small fibroid, poorly delineated from the adjacent myometrium. Correlate with clinical findings. If clinically indicated, nonemergent MRI could be obtained to further characterize. 2. Mildly complex cyst in the right ovary. No sonographic evidence for right ovarian torsion. 3. Left ovary is not visualized. 4. Nabothian cyst in the cervix. ATED BY: RAJESH BRIONES DO DICTATED DATE/TIME: 08/01/251223 SIGNED BY: RAJESH BRIONES DO SIGNED DATE/TIME: 08/01/251223 CC: ORDERING PHYSICIAN: MADISON APPLE MD PROCEDURE(s): PELUS - PELVIC REASON: Fibroid ovarian cyst rule out torsion ORDER NUMBER(s): [id number], ACCESSION NUMBER(s): [id number] CLINICAL HISTORY: Fibroid, ovarian cyst. Rule out torsion. COMPARISON:US PELVIC on DOS: 07/03/25, CT ABD PELVIS WO CONTRAST on DOS: 04/03/22, TRANSVAGINAL US NON OB on DOS: 07/15/21 TECHNIQUE: Transvaginal and transabdominal grayscale sonographic imaging of the uterus and ovaries was performed, assisted by color Doppler technique. Duplex Doppler ultrasound of both ovaries was also performed. FINDINGS: The uterus measures 9.9 x 7.7 x 6.8 cm. There is heterogeneous echogenicity. Focal heterogeneous area in the uterine myometrium measuring up to 1.7 cm, possible fibroid, minimally changed compared to the prior exam, and poorly delineated from the adjacent myometrium. Endometrial thickness measures 1.5 cm, at the upper limits of normal for premenopausal. Nabothian cyst in the right side of the cervix. Right ovary measures 3.9 x 2.6 x 3.5 cm. Arterial and venous blood flow demons trated. Mildly complex cyst in the right ovary measures up to 2.4 cm with septations visualized. Left ovary is not visualized. IMPRESSION: 1. Heterogeneous uterus with possible small fibroid, poorly delineated from the adjacent myometrium. Correlate with clinical findings. If clinically indicated, nonemergent MRI could be obtained to further characterize. 2. Mildly complex cyst in the right ovary. No sonographic evidence for right ovarian torsion. 3. Left ovary is not visualized. 4. Nabothian cyst in the cervix. ATED BY: RAJESH BRIONES DO DICTATED DATE/TIME: 08/01/251223 SIGNED BY: RAJESH BRIONES DO SIGNED DATE/TIME: 08/01/251223 CC: SEPSIS Sepsis Screen Date sepsis recognized/suspect: Aug 01, 2025 Time Sepsis recognized/suspect: 1150 Recent Procedure: No On Antibiotic Therapy: No Respiratory Rate >20: No Heart Rate >90: No Temp<36 C (96.8 F) or >38.3 C: No SBP <90 or MAP <65 mmHG: No New Acute Mental Status Change: No Is the patient on CPAP, BIPAP,: No Physician Orders Pelvic (08/01/25 10:34) Type And Screen (08/01/25 10:34) Transvaginal Us Non Ob (08/01/25 11:20) Admit (08/01/25 13:19) 2 Gm Sodium Diet (08/01/25 Lunch) Complete Blood Count (08/02/25 04:00) Comprehensive Metabolic Panel (08/02/25 04:00) Condition: Fair (08/01/25 13:19) Acetaminophen Tablet (Tylenol Tablet) (08/01/25 13:30) Bedrest With Bathroom Privileg (08/01/25 13:19) Communication Order (08/01/25 13:20) * Credit Interviewer Consultation (08/01/25 13:20) Prothrombin Time W/ Inr (08/01/25 13:22) Comprehensive Metabolic Panel (08/01/25 13:22) Medroxyprogesterone Tablet (Provera Tabl (08/02/25 10:00) Hemoglobin & Hematocrit (08/02/25 00:00) Hemoglobin & Hematocrit (08/02/25 06:00) Hemoglobin & Hematocrit (08/02/25 12:00) Vital Signs Date Time Temp Pulse Resp B/P (MAP) Pulse Ox O2 Delivery O2 Flow Rate FiO2 08/01/25 11:57 98.3 80 18 136/63 (87) 97 98.3 08/01/25 11:51 97 Room Air* 0 21 08/01/25 11:38 80 17 97 Room Air* 0 21 08/01/25 10:33 98.1 90 18 129/65 (86) 97 98.1 08/01/25 07:54 98.2 73 16 143/68 99 98.2 Laboratory Tests Test 08/01/25 09:25 White Blood Count 3.5 10^3/uL (4.4-10.8) L Reassessment Post Fluid Pulse Location: Radial Pulse Strength: Normal Capillary Refill Exam: < 3 seconds Skin Temperature: Warm Skin Moisture: Dry Skin Tugor: WNL Skin Color: Pale Fingernail Color: WNL Assessment/Plan Assessment/Plan Vaginal bleeding--patient complaint of vaginal bleeding associated with generalized weakness Patient reports heavy vaginal bleeding with large clots since 07/21/2025 She was here at this facility one month ago with same symptoms She has OBGYN appointment on 08/14/2025 Denies recent injury or trauma/denies anticoagulants Patient is agreeable in receiving blood transfusion Hemoglobin 6.8 Admit to medical-surgical unit Reviewed CBC shows hemoglobin 6.8 Order CMP pending result RBC morphology pending No anticoagulants Type and screen Transfuse 2 units packed red blood cell now H&H q.6 hours next one to be checked at 9:00 p.m. Pelvic ultrasound see result Transvaginal ultrasound see result Consult OBGYN Dr. Pollack for evaluation and recommendation Reconcile home meds Labs in a.m. DVT prophylaxis not indicated PUD prophylaxis not indicated no history of GERD Discussed plan of care with the patient in which all questions concerns have been addressed Plan discussed with: Patient My Orders Orders - NANY BERRIOS Procedure Category Date Status Time Admit ADMIT 08/01/25 Transmitted 13:19 2 Gm Sodium Diet DIET 08/01/25 Transmitted Lunch Complete Blood Count LAB 08/02/25 Verified 04:00 Comprehensive LAB 08/02/25 Verified Metabolic Panel 04:00 Condition: Fair SALLY 08/01/25 In Process 13:19 Acetaminophen Tablet PHA 08/01/25 Logged (Tylenol Tablet) 13:30 Bedrest With Bathroom SALLY 08/01/25 In Process Privileg 13:19 Communication Order ORDERS 08/01/25 Transmitted 13:20 * Credit Interviewer Consultation CONS 08/01/25 Transmitted 13:20 Prothrombin Time W/ LAB 08/01/25 Logged INR 13:22 Comprehensive LAB 08/01/25 Logged Metabolic Panel 13:22 Medroxyprogesterone PHA 08/02/25 Logged Tablet (Provera Tabl 10:00 Hemoglobin & LAB 08/02/25 Verified Hematocrit 00:00 Hemoglobin & LAB 08/02/25 Verified Hematocrit 06:00 Hemoglobin & LAB 08/02/25 Verified Hematocrit 12:00 Date of Service: Aug 01, 2025 Billing Provider: NANY BERRIOS Common Visit Codes: [id number] INP/OBS CARE (HIGH) NANY BERRIOS FISH AGENT Aug 01, 2025 13:33
[2025-08-01 14:13] LABS: INR 0.97 (0.9-1.15); Prothrombin Time 10.3 sec (9.3-11.8)
[2025-08-01 14:18] LABS: Alanine Aminotransferase 10 U/L (7-40); Albumin 4.3 g/dL (3.2-4.8); Alkaline Phosphatase 75 U/L (46-116); Anion Gap 8 (5-15); BUN/Creatinine Ratio 11.1 (10.0-20.0); Bilirubin, Total 0.3 mg/dL (0.2-1.0); Blood Urea Nitrogen 9 mg/dL (9-23); Carbon Dioxide 24 mmol/L (20-31); Potassium 4.4 mmol/L (3.5-5.1); Sodium 139 mmol/L (136-145); Total Protein 6.4 g/dL (5.7-8.2)
[2025-08-01 14:28] LABS: Calcium 8.6 mg/dL (8.7-10.4); Chloride 107 mmol/L (98-107); Glucose 113 mg/dL (74-106)
[2025-08-01] MEDS: ACETAMINOPHEN 325 MG TAB PO PRN (17:55)
--- NOTE | 2025-08-01 21:08 | DVHINCON2 ---
Date of service: Aug 01, 2025 Referring Physician hospitalist Reason for Consultation Irregular bleeding since July 21 History of Present Illness History Source: Patient Exam Limitations: No limitations Home Meds Active Scripts Cephalexin Monohydrate (Cephalexin) 500 Mg Cap, 1 CAP PO QID for 10 Days, #40 CAP Prov:LIBIA SADLER MD 07/04/25 Medroxyprogesterone Acetate (PROVERA) 5 Mg Tab, 1 TAB PO DAILY for 10 Days, #10 TAB 11 Refills Prov:LIBIA SADLER MD 07/04/25 Nitrofurantoin Monohydrate Mac (Macrobid) 100 Mg Cap, 100 MG PO BID for 5 Days, #10 CAP Prov:MAY BARRAZA MD 04/03/22 Chief Complaint of Abdominal/F: Other (Mild abdominal pain no peritoneal signs) Past Medical History Cardiac: No pertinent Hx Pulmonary: No pertinent Hx Central Nervous System: No pertinent Hx GI: No pertinent Hx Hemotology/Oncology: No pertinent Hx Hepatobiliary: No pertinent Hx Psychiatric: No pertinent Hx Musculoskeletal: No pertinent Hx Rheumotologic: No pertinent Hx Infectious Disease: No peritnent Hx ENT: No pertinent Hx Renal/: No pertinent Hx Endocrine: No pertinent Hx Dermatology: No pertinent Hx Past Surgical History: No pertinent Hx Family History: No pertinent Hx Patient Family History: Patient reports no known family medical history. Smoker: No Hx (Negative) Alocohol: None Drugs: None Domestic Violence: Neg Review of Systems Constitutional: No symptom reported Ears, Nose, & Throat: No symptom reported Eyes: No symptom reported Pulmonary/Respiratory: No symptom reported Cardiovascular: No symptom reported Gastrointestinal: No symptom reported Genitourinary: No symptom reported Musculoskeletal: No symptom reported Skin: No symptom reported Psychiatric: No symptom reported Endocrine: No symptom reported Hemotologic/Lymphatic: No symptom reported H&P Exam Vital Signs Vital Signs Date Time Temp Pulse Resp B/P (MAP) Pulse Ox O2 Delivery O2 Flow Rate FiO2 08/01/25 20:17 101.9 78 16 137/70 101.9 08/01/25 17:00 100 08/01/25 15:37 Room Air* 0 21 General Appeara: Well developed, Well nourished, Normal Appearance Head Exam: Normal inspection Neck Exam: Normal inspection, Non-tender, Normal alignment Eye Exam: bilateral eye Normal inspection, bilateral eye PERRL, bilateral eye EOMI Ear Exam: bilateral ear Auricle normal, bilateral ear Canal normal, bilateral ear TM normal Nasal Exam: Normal inspection Mouth: Normal Inspection Pulmonary/Respiratory: Normal inspection, Normal breath sounds, Chest non- tender, Lungs clear Cardiovascular/Chest: Normal inspection, Regular rate, Normal Rhythm Abdominal Exam: Normal bowel sounds, Soft, No tenderness, No hepatospenomegaly, No masses Rectal Exam: Normal inspection Back Exam: Normal inspection Pelvic Exam: External exam normal, Bimanual exam normal, Speculum exam normal Male Genital Exam: Normal genitalia, Normal prostate Shoulder Exam: Normal inspection, Non-tender, Normal ROM Elbow/Forearm Exam: Normal inspection, Non-tender, Normal ROM Wrist Exam: Normal inspection, Non-tender, Normal ROM Hand Exam: Normal inspection, Non-tender, Normal ROM Hip exam: Normal inspection, Non-tender, Normal range of motion Legs: bilateral leg non-tender, bilateral leg normal inspection, bilateral leg normal range of motion, bilateral leg no evidence of injury Knees: bilateral knee non-tender, bilateral knee normal inspection, bilateral knee normal range of motion, bilateral knee no evidence of injury Ankle Exam: bilateral ankle Normal inspection, bilateral ankle Non-tender, bilateral ankle Normal range of motion, bilateral ankle No evidence of injury Foot: bilateral foot non-tender, bilateral foot normal inspection, bilateral foot normal range of motion, bilateral foot no evidence of injury Tendon/ Neuro: Normal sensation, Normal motor function, Normal tendon functions PRODUCTION CONTROL COORDINATOR Exam: Normal hearing, Normal speech, PERRL Motor/Sensory: Normal sensory function, Normal motor function, Negative Babinski's sign Deep Tendon Ref: All intact Neuro/Mental St: Alert, Oriented Appearance: Appropriate appearance, Appropriate insight Eye contact/ Speech: Cooperative, Good eye contact, Normal speech Coordination/Gait: Normal finger->nose, Normal gait, Negative Romberg's sign Skin Exam: Normal inspection, Normal color, Warm/dry Lymphatic: Normal inspection Labs/Xrays Labs Test 08/01/25 13:37 08/01/25 10:17 08/01/25 09:25 Range/Units Prothrombin Time 10.3 9.3-11.8 sec Prothrombin Time INR 0.97 0.9-1.15 Urine Color Red H Yellow Urine Clarity Cloudy H Clear Urine pH 6.0 5.0-9.0 Urine Specific [place] 1.008 1.001-1.035 Urine Protein 2+ H Negative Urine Ketones Negative Negative Urine Blood 3+ H Negative /uL Urine Nitrite Negative Negative Urine Bilirubin Negative Negative Urine Urobilinogen Normal Negative mg/dL Urine Leukocyte Esterase 1+ Negative /uL Urine RBC 5981 0 - 4 /hpf Urine Microscopic WBC 5 0-5 /HPF Urine Squamous Epithelial Cells None seen <5 /hpf Urine Bacteria None seen None Seen /hpf Urine Glucose Normal Normal mg/dL White Blood Count 3.5 L 4.4-10.8 10^3/uL Red Blood Count 2.97 L 4.0-5.20 10^6/uL Hemoglobin 6.8 *L 12.2-16.2 g/dL Hematocrit 21.8 L 36.0-46.0 % Mean Corpuscular Volume 73.5 L 80.0-100.0 fL Mean Corpuscular Hemoglobin 22.7 L 28.0-32.0 pg Mean Corpuscular Hemoglobin Concent 30.9 L 32.0-36.0 g/dL Red Cell Distribution Width 17.2 H 11.8-14.3 % Platelet Count 170 140-450 10^3/uL Mean Platelet Volume 8.5 6.9-10.8 fL Neutrophils (%) (Auto) 55.2 37.0-80.0 % Lymphocytes (%) (Auto) 36.3 10.0-50.0 % Monocytes (%) (Auto) 5.9 0.0-12.0 % Eosinophils (%) (Auto) 1.8 0.0-7.0 % Basophils (%) (Auto) 0.8 0.0-2.0 % Neutrophils # (Auto) 1.9 1.6-8.6 10 ^3/uL Lymphocytes # (Auto) 1.3 0.4-5.4 10 ^3/uL Monocytes # (Auto) 0.2 0-1.3 10 ^3/uL Eosinophils # (Auto) 0.1 0-0.8 10 ^3/uL Basophils # (Auto) 0 0-0.2 10 ^3/uL Nucleated Red Blood Cells 0.1 % Platelet Estimate Adequate Hypochromasia (manual) Moderate Anisocytosis (manual) Slight Microcytosis Moderate Sodium Level 139 136-145 mmol/L Potassium Level 4.4 3.5-5.1 mmol/L Chloride Level 107 98-107 mmol/L Carbon Dioxide Level 24 20-31 mmol/L Anion Gap 8 5-15 Blood Urea Nitrogen 9 9-23 mg/dL Creatinine 0.81 0.550-1.02 mg/dL Glomerular Filtration Rate Calc 91 >90 mL/min BUN/Creatinine Ratio 11.1 10.0-20.0 Serum Glucose 113 H 74-106 mg/dL Calcium Level 8.6 L 8.7-10.4 mg/dL Total Bilirubin 0.3 0.2-1.0 mg/dL Aspartate Amino Transferase (AST) 8 L 13-40 U/L Alanine Aminotransferase (ALT) 10 7-40 U/L Alkaline Phosphatase 75 46-116 U/L Total Protein 6.4 5.7-8.2 g/dL Albumin 4.3 3.2-4.8 g/dL Assessment/Plan Admitting Diagnosis: Fibroid uterus heavy abnormal uterine bleeding severe anemia status post 2 units packed RBCs Plan Hysteroscopy fractional D&C on-call to OR Plan discussed with: Patient (Risks benefits alternatives complications discussed not limited infection bleeding anesthesia acute chronic pain damage to adjacent organs transfusion hep B HIV transfusion reaction my stroke P DVT . All questions answered and encouraged.) Visit Coding Surgery Date of Service if different f: Aug 01, 2025 Billing Provider: YOLI BARBOZA DO Surgery Visit Codes: [id number] - INP CONSULT <40 MIN YOLI BARBOZA DO Aug 01, 2025 21:08
[2025-08-02] VITALS (9 sets, daily range): BP systolic 123–165; BP diastolic 76–96; PULSE 65–84; RESP 11–18; TEMP 98–98.4; O2SAT 94–99
[2025-08-02] MEDS ORDERED: fentaNYL CITRATE 100 MCG/2 ML VL ONE (07:21)
[2025-08-02] MEDS ORDERED: PROPOFOL 10 MG/ML 20 ML IV ONE (07:22)
[2025-08-02] MEDS ORDERED: HYDROmorphone HCL 2 MG/ML VL/or syr ONE ×2 (07:29→09:31)
[2025-08-02] MEDS ORDERED: PHENYLEPHRINE HCL 10 MG/ML VL ONE (07:29)
[2025-08-02 07:50] LABS: INR 1.0 (0.9-1.15); Prothrombin Time 10.6 sec (9.3-11.8)
[2025-08-02 07:54] LABS: Hemoglobin 8.4 g/dL (12.2-16.2); Nucleated Red Blood Cells % 0.0 %
[2025-08-02 07:57] LABS: Hematocrit 25.9 % (36.0-46.0); Mean Corpuscular Hemoglobin 24.7 pg (28.0-32.0); Mean Corpuscular Volume 76.3 fL (80.0-100.0)
[2025-08-02] MEDS ORDERED: ceFAZolin 1GM/50ML 50 ML IV ONE ×2 (08:01→08:03)
[2025-08-02 08:07] LABS: Alkaline Phosphatase 71 U/L (46-116); Anion Gap 10 (5-15); BUN/Creatinine Ratio 8.9 (10.0-20.0); Carbon Dioxide 21 mmol/L (20-31); Glucose 100 mg/dL (74-106); Potassium 4.2 mmol/L (3.5-5.1); Sodium 139 mmol/L (136-145); Total Protein 6.2 g/dL (5.7-8.2)
[2025-08-02 08:08] LABS: Albumin 3.9 g/dL (3.2-4.8); Bilirubin, Total 0.6 mg/dL (0.2-1.0)
[2025-08-02 08:10] LABS: Alanine Aminotransferase < 9 U/L (7-40); Blood Urea Nitrogen 7 mg/dL (9-23); Calcium 8.7 mg/dL (8.7-10.4); Chloride 108 mmol/L (98-107)
--- NOTE | 2025-08-02 08:16 | DVHOP2 ---
Operative Report - 2 Report Details Date: 08/02/25 Preop Diagnosis: Severe anemia, active uterine bleeding, fibroids Postop Diagnosis: Fibroid Uterus, Severe Anemia, Active uterine bleeding Surgeon: Kristi Barboza Anesthesiologist: Shelley JENKINS Anesthesia: General Consent: The patient was informed of the risks and benefits of the procedure. These include but are not limited to complications of anesthesia, postoperative infection, incomplete relief of symptoms, recurrence of symptoms, damage to blood vessels, nerves and tendons, deep venous thrombosis, pulmonary embolism and possible need for repeat surgery in the future. Complications: none Estimated Blood Loss: 10cc Fluids: See Anesth log Findings: Dyssynchronous endometrium no endometrial polyps and/or fibroids. Indications for Surgery: Severe anemia status post 2 units packed RBC, active uterine bleeding, fibroids Name of Procedure Performed Hysteroscopy D&C endometrial ablation Procedure Details Procedure Details: Patient brought to the operating room placed supine position general anesthesia performed without difficulty she was then placed in Miah stirrups prepped draped sterile fashion weighted speculum placed posteriorly cervix identified grasped with sharp tooth tenaculum sounded 7 cm ECC EMC performed hysteroscopy shows dyssynchronous endometrium no endometrial polyps and/or fibroids. NovaSure ablation device was placed according to the manufacture endometrial burn was performed and then patient was subsequently taken to recovery in stable condition. Specimen: ECC, EMC Condition Good Disposition Home YOLI BARBOZA DO Aug 02, 2025 08:16
[2025-08-02] MEDS ORDERED: ONDANSETRON HCL 4 MG/2 ML VIAL ONE ×2 (08:50→09:32)
[2025-08-02] MEDS: HYDROmorphone HCL 2 MG/ML VL/or syr IV ONE (09:28)
[2025-08-02] MEDS: ONDANSETRON HCL 4 MG/2 ML VIAL IV PRN (09:29)
[2025-08-02] MEDS ORDERED: METOCLOPRAMIDE HCL 5MG/ml INJ 2ml VIAL IV PRN (09:30)
[2025-08-02] MEDS ORDERED: HYDROmorphone HCL 2 MG/ML VL/or syr IV PRN (09:30)
[2025-08-02] MEDS ORDERED: ACETAMINOPHEN IV 1000 MG/100ML (10MG/ML) IV PRN (09:30)
[2025-08-02 11:08] LABS: Hematocrit 28.6 % (36.0-46.0); Hemoglobin 9.2 g/dL (12.2-16.2)
--- NOTE | 2025-08-02 11:30 | DVHPN2 ---
Subjective The patient seen and examined at bedside. Complains of pain, status post procedure in am. Reviewed: Care Plan, H&P, Labs, Medications, Previous Orders, Radiology Changes from previous H/P or p: No Changes Objective Vitals Vital Signs Date Time Temp Pulse Resp B/P (MAP) Pulse Ox O2 Delivery O2 Flow Rate FiO2 08/02/25 10:15 64 12 159/91 (113) 94 08/02/25 09:16 Room Air 0 08/02/25 09:16 97.6 97.6 08/02/25 08:00 21 Intake/Output Intake and Output 08/02/25 07:00 Intake Total 1640 ml Output Total 1100 ml Balance 540 ml Intake Oral 1040 ml Blood Product 600 ml Output Urine Total 1100 ml # Voids 2 # Bowel Movements 1 General Appearance: Alert, Oriented X3, Cooperative, No acute distress HEENT: Atraumatic, PERRLA, EOMI, Mucous membr. moist/pink Neck: Supple Lungs: Clear to auscultation, Normal air movement Cardiovascular: Regular rate, Normal S1, Normal S2, No murmurs, Gallops, Rubs Abdomen: Normal bowel sounds, Soft, No tenderness Neuro: Cranial nerves 3-12 NL Psych/Mental Status: Mental status NL Medications Current Medications Medications Dose Ordered Sig/Doyle Route Start Time Stop Time Status Last Admin Dose Admin Acetaminophen 650 mg Q6HP PRN PO 08/01/25 13:30 08/02/25 01:07 650 MG Medroxyprogesterone Acetate 5 mg DAILY PO 08/02/25 10:00 Laboratory Results Laboratory Tests 08/02/25 06:12 08/02/25 10:47 Chemistry Test 08/02/25 06:12 Albumin 3.9 g/dL (3.2-4.8) Calcium Level 8.7 mg/dL (8.7-10.4) Total Protein 6.2 g/dL (5.7-8.2) Coagulation Test 08/01/25 13:37 08/02/25 06:12 Prothrombin Time 10.3 sec (9.3-11.8) 10.6 sec (9.3-11.8) Prothrombin Time INR 0.97 (0.9-1.15) 1.00 (0.9-1.15) LFT Test 08/02/25 06:12 Alanine Aminotransferase (ALT) < 9 U/L (7-40) Alkaline Phosphatase 71 U/L (46-116) Aspartate Amino Transferase (AST) 9 U/L (13-40) L Total Bilirubin 0.6 mg/dL (0.2-1.0) Urinalysis Test 08/01/25 10:17 08/02/25 08:08 Urine Color Red (Yellow) H Urine Clarity Cloudy (Clear) H Urine pH 6.0 (5.0-9.0) Urine Specific [place] 1.008 (1.001-1.035) Urine Protein 2+ (Negative) H Urine Ketones Negative (Negative) Urine Blood 3+ /uL (Negative) H Urine Nitrite Negative (Negative) Urine Bilirubin Negative (Negative) Urine Urobilinogen Normal mg/dL (Negative) Urine Leukocyte Esterase 1+ /uL (Negative) Urine RBC 5981 /hpf (0 - 4) Urine Microscopic WBC 5 /HPF (0-5) Urine Squamous Epithelial Cells None seen /hpf (<5) Urine Bacteria None seen /hpf (None Seen) Urine Glucose Normal mg/dL (Normal) Urine Test Negative (Negative) Assessment/Plan Assessment/Plan Vaginal bleeding--patient complaint of vaginal bleeding associated with generalized weakness Patient reports heavy vaginal bleeding with large clots since 07/21/2025 She was here at this facility one month ago with same symptoms She has OBGYN appointment on 08/14/2025 Denies recent injury or trauma/denies anticoagulants Patient is agreeable in receiving blood transfusion Hemoglobin 6.8 Admit to medical-surgical unit Reviewed CBC shows hemoglobin 6.8 Order CMP pending result RBC morphology pending No anticoagulants Type and screen Transfuse 2 units packed red blood cell now H&H q.6 hours next one to be checked at 9:00 p.m. Pelvic ultrasound see result Transvaginal ultrasound see result Consult OBGYN Dr. Pollack for evaluation and recommendatio Plan discussed with: Patient RIKKI DOHERTY MD Aug 02, 2025 11:30
[2025-08-02] MEDS: HYDROcodone-ACET 5/325MG TAB PO ONE (13:16)
[2025-08-02 14:53] LABS: Hematocrit 30.8 % (36.0-46.0); Hemoglobin 9.9 g/dL (12.2-16.2)
--- NOTE | 2025-08-03 00:14 | DVHDS2 ---
Discharge Summary Date of Admission Aug 01, 2025 at 13:19 Date of Discharge: Aug 02, 2025 Admitting Diagnosis Vaginal bleeding--patient complaint of vaginal bleeding associated with generalized weakness Acute blood lost anemia Labs/Diagnostic Data: Laboratory Results Test 08/02/25 14:28 08/02/25 08:08 08/02/25 06:12 08/01/25 10:17 Hemoglobin 9.9 g/dL (12.2-16.2) Hematocrit 30.8 % (36.0-46.0) Urine Test Negative (Negative) White Blood Count 4.4 10^3/uL (4.4-10.8) Red Blood Count 3.39 10^6/uL (4.0-5.20) Mean Corpuscular Volume 76.3 fL (80.0-100.0) Mean Corpuscular Hemoglobin 24.7 pg (28.0-32.0) Mean Corpuscular Hemoglobin Concent 32.4 g/dL (32.0-36.0) Red Cell Distribution Width 17.6 % (11.8-14.3) Platelet Count 160 10^3/uL (140-450) Mean Platelet Volume 8.9 fL (6.9-10.8) Neutrophils (%) (Auto) 65.7 % (37.0-80.0) Lymphocytes (%) (Auto) 27.1 % (10.0-50.0) Monocytes (%) (Auto) 5.0 % (0.0-12.0) Eosinophils (%) (Auto) 1.7 % (0.0-7.0) Basophils (%) (Auto) 0.5 % (0.0-2.0) Neutrophils # (Auto) 2.9 10 ^3/uL (1.6-8.6) Lymphocytes # (Auto) 1.2 10 ^3/uL (0.4-5.4) Monocytes # (Auto) 0.2 10 ^3/uL (0-1.3) Eosinophils # (Auto) 0.1 10 ^3/uL (0-0.8) Basophils # (Auto) 0 10 ^3/uL (0-0.2) Nucleated Red Blood Cells 0.0 % Prothrombin Time 10.6 sec (9.3-11.8) Prothrombin Time INR 1.00 (0.9-1.15) Sodium Level 139 mmol/L (136-145) Potassium Level 4.2 mmol/L (3.5-5.1) Chloride Level 108 mmol/L (98-107) Carbon Dioxide Level 21 mmol/L (20-31) Anion Gap 10 (5-15) Blood Urea Nitrogen 7 mg/dL (9-23) Creatinine 0.79 mg/dL (0.550-1.02) Glomerular Filtration Rate Calc 94 mL/min (>90) BUN/Creatinine Ratio 8.9 (10.0-20.0) Serum Glucose 100 mg/dL (74-106) Calcium Level 8.7 mg/dL (8.7-10.4) Total Bilirubin 0.6 mg/dL (0.2-1.0) Aspartate Amino Transferase (AST) 9 U/L (13-40) Alanine Aminotransferase (ALT) < 9 U/L (7-40) Alkaline Phosphatase 71 U/L (46-116) Total Protein 6.2 g/dL (5.7-8.2) Albumin 3.9 g/dL (3.2-4.8) Urine Color Red (Yellow) Urine Clarity Cloudy (Clear) Urine pH 6.0 (5.0-9.0) Urine Specific [place] 1.008 (1.001-1.035) Urine Protein 2+ (Negative) Urine Ketones Negative (Negative) Urine Blood 3+ /uL (Negative) Urine Nitrite Negative (Negative) Urine Bilirubin Negative (Negative) Urine Urobilinogen Normal mg/dL (Negative) Urine Leukocyte Esterase 1+ /uL (Negative) Urine RBC 5981 /hpf (0 - 4) Urine Microscopic WBC 5 /HPF (0-5) Urine Squamous Epithelial Cells None seen /hpf (<5) Urine Bacteria None seen /hpf (None Seen) Urine Glucose Normal mg/dL (Normal) Test 08/01/25 09:25 Platelet Estimate Adequate Hypochromasia (manual) Moderate Anisocytosis (manual) Slight Microcytosis Moderate Other Laboratory Tests 08/02/25 14:28 08/02/25 06:12 Brief Hx & Hospital Course: This is a 45 years old female with past medical history of , uterine fibroid, cysts of the left ovary, irregular menses is come in because of vaginal bleed. Patient had been in the ER one month ago for the similar symptoms and was diagnosis with uterine fibroids, UTI, cysts on the left ovary. The patient has an OBGYN consult in August 14 however she had heavy vaginal bleeding with large clots since 07/21/2025 and worsening with fatigue, dizzy, pelvic cramping pale skin and weakness. She was found to have hemoglobin of 6.8. She received two packed red blood cell transfusions. The patient also had a D&C done today and also a endometrial ablation. After procedure the patient complain of severe pain. I gave her one dose of [place] in the pain improved. I am going to discharge the patient home today. Advised the patient to follow up with primary care physician 1-2 weeks. Follow up with OBGYN, per schedule. Activity as tolerated. Diet per home diet. Physical exam: HEENT: Normocephalic atraumatic pupils equal react to light and accommodation. Extraocular muscles intact, conjunctiva pink, oropharynx moist, no thrush, no exudate. Lymphatic: No lymphadenopathy Cardiovascular exam: S1, S2 was heard. No murmurs, rubs, gallops Lung: Clear on auscultation bilaterally, no wheeze, rale, rhonchi. GI: Abdominal soft, nondistended, nontenderness, positive bowel sounds. Extremity: No crepitus, cyanosis, edema. Pedal pulses present bilateral. Full range of motion. Skin: Normal turgor, no rash. Psych: Alert, oriented x3. Neurology: No focal deficits, cranial nerve II to XII grossly intact. This medical document was created using an electronic medical record system with [employer] direct computerized dictation system. Although this document has been carefully reviewed, there may still be some phonetic and typographical errors. These areas are purely typographical due to imperfections of the software programs, and do not reflect any compromise in the patient's medical care. Condition at Discharge: Stable Final Diagnosis/Problems List Acute blood loss anemia status post transfusions Fibroid Uterus, Active uterine bleeding Discharge Disposition: Home Discharge Instruct/Medications Diet: Regular Diet comment: usual Activity: Light activity Activity comment: pelvic rest , off work 1 weeks Follow Up/Referral: 3 weeks Zand DO Medications: Keflex 500mg TID x 7 days Motrin 600 mg TID prn pain Scheduled Cephalexin Monohydrate (Cephalexin), 1 CAP PO QID Medroxyprogesterone Acetate (Provera), 1 TAB PO DAILY Nitrofurantoin Monohydrate Mac (Macrobid), 100 MG PO BID Discharge Statement: "Patient was advised to return to the ER or call 911 if any headaches, dizziness, shortness of breath, chest pain, abdominal pain, bleeding, fevers, or worsening of medical condition. Patient was counseled about treatment plan, medications, possible side effects, patientverbalized understanding. All questions were answered to the best of my ability. This discharge took greater then 30 minutes in planning, reviewing documentation, counseling the patient, and discussing with other team members." ASSESSMENT ASSESSMENT Assessment Fibroid Uterus, Severe Anemia, Active uterine bleeding Date of Service: Aug 02, 2025 Billing Provider: RIKKI DOHERTY MD Common Visit Codes: 84868-ANF/OBS DISCH DAY >30min RIKKI DOHERTY MD Aug 03, 2025 00:14
[2025-08-03] MEDS ORDERED: IBUP-1454 PO (20:09)
[2025-08-03] MEDS ORDERED: CEPH250C PO (20:09)
== END 2025-08-02 18:00 | disposition home or self-care (01) | DRG 513 ==
LOC: ER 07:50 → OVERFLOW 13:19 → WEST WING 15:27
PROVIDERS: ADMIT Nurse Practitioner Family; ATTEND Nurse Practitioner Family
PROC: 30233N1 Transfusion of Nonautologous Red Blood Cells into Peripheral Vein, Percutaneous Approach (ICD-10-PCS; principal; 2025-08-01)
PROC: 0U5B8ZZ Destruction of Endometrium, Via Natural or Artificial Opening Endoscopic (ICD-10-PCS; 2025-08-02)
DX: N85.8 Other specified noninflammatory disorders of uterus (principal); D62 Acute posthemorrhagic anemia; Z90.49 Acquired absence of other specified parts of digestive tract
CPT/HCPCS: 36415; 76830; 76856; 80053; 81001; 81025; 85014; 85018; 85025; 85610; 86850; 86900; 86901; 86920; G0378; J0131; J1100; J2405; J2704